=== PATIENT | female | born 1965 | race Caucasian/White ===

== ENCOUNTER → 2019-02-08 | Outpatient (CLI) | payer OTHER ==
[~2019-02-08] MED LIST: ADVAIR IH; HCTZ; LIPITOR; LORTAB 5/500 501 TAB PO; PEPCID 20MG TAB20 MG PO; SINGULAIR; SYNTHROID0.025 MG PO
== END ==
LOC: COL.RAD 10:08
DX: M46.82 Other specified inflammatory spondylopathies, cervical region (principal); M50.222 Other cervical disc displacement at C5-C6 level; M48.02 Spinal stenosis, cervical region; M89.38 Hypertrophy of bone, other site; M40.292 Other kyphosis, cervical region

== ENCOUNTER 2019-10-18 05:31 | Day surgery (SDC) | payer OTHER ==
[~2019-10-18] VITALS: Ht 165.1 cm; Wt 173.5 kg
[2019-10-18] VITALS (12 sets, daily range): BP systolic 100–139; BP diastolic 45–75; PULSE 62–92; TEMP 98–98.6
[2019-10-18] MEDS ORDERED: SPIRIVA RE2.5 MCG/Ac IH (06:01)
[2019-10-18] MEDS ORDERED: EFFEXOR 75M75 MG/TAB PO (06:01)
[2019-10-18] MEDS ORDERED: ATARAX 25MG25 MG/TAB PO (06:01)
[2019-10-18] MEDS ORDERED: ZAROXOLYN 2.52.5 MG PO (06:03)
[2019-10-18] MEDS ORDERED: LASIX 40MG TABL40 MG PO (06:03)
[2019-10-18] MEDS ORDERED: SINGULAIR 110 MG/TAB PO (06:04)
[2019-10-18] MEDS ORDERED: ALBUTEROL S0.4 MG/ML PO (06:04)
[2019-10-18] MEDS ORDERED: SYNTHROID0.137 MG PO (06:05)
[2019-10-18] MEDS ORDERED: DRISDOL50000 IU PO (06:05)
[2019-10-18] MEDS ORDERED: 00186-0370-20 IH (06:06)
[2019-10-18] MEDS ORDERED: PROAIR HFA0.09 MG/AC IH (06:06)
[2019-10-18] MEDS ORDERED: ALDACTONE 100M100 MG PO (06:07)
[2019-10-18] MEDS ORDERED: K-DUR20 MEQ PO (06:08)
--- NOTE | 2019-10-18 06:40 | NUR ---
Patient has one tooth on the left lower front that is loose pre-op.
--- NOTE | 2019-10-18 06:46 | NUR ---
Verbal order from Peace Galaviz CRNA that patient does NOT need a blood glucose prior to OR.
--- NOTE | 2019-10-18 06:59 | NUR ---
Patient responded YES to first 2 suicide screening questions. Order for behavioral health screening at discharge placed per screening tool instructions.
--- NOTE | 2019-10-18 08:08 | NUR ---
Patient belongings bags x3 taken to PACU Labeled with patient's stickers at this time.
--- NOTE | 2019-10-18 11:10 | NUR ---
Patient up from OR. Alert and oriented x 3. Assessment complete. Lap sites x4 with bandaids in place, CDI. Katiana pads in place. Post op fluids infusing. Tolerating clear liquids. Russell to dependent drainage with clear yellow urine in bag. Spouse at bedside. Post op VSS. Denies further needs at this time.
[2019-10-18] MEDS ORDERED: DILAUDID 2MG TAB2 MG PO (11:12)
--- NOTE | 2019-10-18 16:06 | NUR ---
Contacted Dr. Yu, restarted home respiratory medications. Patient tolerating fluids, IV to INT. Patient up to recliner, stand by assist.
--- NOTE | 2019-10-18 18:25 | NUR ---
Patient has done well throughout the day, up to recliner most of the afternoon. Peripad with scant drainage present. Tolerating diet without difficulties. Denies further needs at this time. Will report off to machinist 2nd shift.
--- NOTE | 2019-10-18 18:30 | NUR ---
Patient ambulated >150 feet with stand by assisst. Russell catheter discontinued per orders, pericare provided
--- NOTE | 2019-10-18 21:25 | NUR ---
patient doing well tonight. alert and oriented x4. c/o pain to her kaycee area, denies pain at incisional sites. abd laps x4 CDI with bandaids. peripad changed, scant amount of bloody drainage present. patient has not voided yet since saenz removed, will continue to monitor. WBG 222 at 1999, 4 units novolog given. INT to R wrist patent and flushes without difficulty. took scheduled medications without issue. no further needs at this time. will continue to monitor.
--- NOTE | 2019-10-19 00:31 | NUR ---
Patient voided 70 ml of clear yellow urine.
[2019-10-19 03:58] VITALS: BP 104/55; PULSE 77; TEMP 98.5
--- NOTE | 2019-10-19 08:00 | NUR ---
Assessment charted. Patient A&Ox4. VSS. IV CDI. Reporting lower abdominal pain/pressure in vaginal/kaycee area. No pain medication requested. Reporting having gas as well. Lap sites 4x abdomen, CDI. Bandaids covering. Nursing instructed to ambulate in room to help with discomfort. No further needs expressed from patient. Call light within reach
[2019-10-19 08:07] VITALS: BP 106/54; PULSE 83; TEMP 98.4
--- NOTE | 2019-10-19 10:45 | NUR ---
Discharge paperwork reviewed with patient. Patient verbalized an understanding of following doctors orders. IV removed, tip intact, coban and gauze applied. No further needs expressed from patient. Discharge paperwork and personal belongings with patient. Patient transfered by wheelchair by nursing staff to vehicle.
== END 2019-10-19 10:45 | disposition home or self-care (01) ==
LOC: SDCO 05:31 → JCC 11:25 → SDCO 10-19 10:45
DX: D25.1 Intramural leiomyoma of uterus (principal); N83.312 Acquired atrophy of left ovary; N83.311 Acquired atrophy of right ovary; N88.8 Other specified noninflammatory disorders of cervix uteri; D86.9 Sarcoidosis, unspecified; E03.9 Hypothyroidism, unspecified; E11.9 Type 2 diabetes mellitus without complications; E66.01 Morbid (severe) obesity due to excess calories; F41.9 Anxiety disorder, unspecified; J44.9 Chronic obstructive pulmonary disease, unspecified; M19.90 Unspecified osteoarthritis, unspecified site; G89.29 Other chronic pain; M54.9 Dorsalgia, unspecified; F32.9 Major depressive disorder, single episode, unspecified; K21.9 Gastro-esophageal reflux disease without esophagitis; G47.33 Obstructive sleep apnea (adult) (pediatric); Z68.44 Body mass index [BMI] 60.0-69.9, adult; Z80.1 Family history of malignant neoplasm of trachea, bronchus and lung; Z82.49 Family history of ischemic heart disease and other diseases of the circulatory system; Z80.8 Family history of malignant neoplasm of other organs or systems; Z87.891 Personal history of nicotine dependence; Z90.49 Acquired absence of other specified parts of digestive tract; Z88.6 Allergy status to analgesic agent; Z88.0 Allergy status to penicillin; Z88.8 Allergy status to other drugs, medicaments and biological substances
CPT/HCPCS: OP; A4314; J0330; J0690; J1815; J1885; J2405; J2704; J2710; J2765; J3010; J7120

== ENCOUNTER 2021-09-28 16:21 | Inpatient (IN) | payer OTHER ==
[~2021-09-28] VITALS: Ht 165.1 cm; Wt 159.0 kg
[~2021-09-28 16:21] MED LIST changes: +00186-0370-20 IH; +ALBUTEROL S0.4 MG/ML PO; +ALDACTONE 100M100 MG PO; +ATARAX 25MG25 MG/TAB PO; +DILAUDID 2MG TAB2 MG PO; +DRISDOL50000 IU PO; +EFFEXOR 75M75 MG/TAB PO; +K-DUR20 MEQ PO; +LASIX 40MG TABL40 MG PO; +PROAIR HFA0.09 MG/AC IH; +SINGULAIR 110 MG/TAB PO; +SPIRIVA RE2.5 MCG/Ac IH; +SYNTHROID0.137 MG PO; +ZAROXOLYN 2.52.5 MG PO
[2021-10-13] VITALS (11 sets, daily range): BP systolic 103–125; BP diastolic 48–84; PULSE 73–94; TEMP 97.9–98.9
[2021-10-13] MEDS ORDERED: RT ADVAIR 128 DISKUS IH (06:40)
[2021-10-13] MEDS ORDERED: PROAIR HFA0.09 MG/AC IH (06:41)
[2021-10-13] MEDS ORDERED: ALBUTEROL0.83 MG/ML IH (06:41)
[2021-10-13] MEDS ORDERED: ZYRTEC 10MG10 MG PO (06:42)
[2021-10-13] MEDS ORDERED: VITAMIN B11000 MCG/M IM (06:43)
[2021-10-13] MEDS ORDERED: ERGOCALCIFER50000 IU PO (06:45)
[2021-10-13] MEDS ORDERED: ATARAX 25MG25 MG/TAB PO (06:46)
[2021-10-13] MEDS ORDERED: SYNTHROID0.137 MG PO (06:47)
[2021-10-13] MEDS ORDERED: LIDODERM 5% PATC1 EA TP (06:49)
[2021-10-13] MEDS ORDERED: SINGULAIR 110 MG/TAB PO (06:50)
[2021-10-13] MEDS ORDERED: ZOLOFT 100MG100 MG PO (06:51)
[2021-10-13] MEDS ORDERED: SPIRIVA RESPIMAT4 GM IH (06:52)
[2021-10-13] MEDS ORDERED: DESYREL 50MG50 MG PO (06:54)
[2021-10-13 10:36] LABS: BASO % 0.4 % (0.0-2.0); EOS % 0.3 % (0.0-4.0); GRAN # 8.9 K/mm3 (1.4-6.5); GRAN % 80.5 % (42.2-75.2); HEMATOCRIT 41.3 % (37.0-47.0); HEMOGLOBIN 14.1 g/dl (12.5-16.0); LYMPH # 1.7 K/mm3 (1.2-3.4); LYMPH % 15.3 % (20.0-51.0); MEAN CELL VOLUME 82 fl (80.0-100.0); MEAN CORPUSCULAR HEMOGLOBIN 28 pg (27-31); MEAN CORPUSCULAR HGB CONC 34 g/dl (33.0-37.0); MEAN PLATELET VOLUME 11.5 fl (7.4-10.4); MONO # 0.3 K/mm3 (0.1-0.6); MONO % 2.5 % (1.7-9.3); PLATELET COUNT 289 K/mm3 (130-400); RED BLOOD COUNT 5.04 M/mm3 (4.10-5.30); REDCELL DISTRIBUTION WIDTH-CV 13.6 % (11.5-14.5)
[2021-10-13 10:48] LABS: ALBUMIN 3.8 gm/dL (3.5-5.0); BILIRUBIN,TOTAL 0.3 mg/dL (0.2-1.2); CALCIUM 9.2 mg/dL (8.4-10.2); CREATININE, serum 1.37 mg/dL (0.57-1.11); POTASSIUM 3.2 mmol/L (3.5-4.5); TOTAL PROTEIN 7.6 gm/dL (6.2-8.1)
--- NOTE | 2021-10-13 12:00 | NUR ---
Pt up recently from surgery. She is alert, does have complaints of pain, CONICAL MIXER started and pt educated on use. Pt is aware that she is to not have anything to eat or drink. Gave her some sponges to moisten her mouth. VSS. Oriented pt to room, call light within reach
--- NOTE | 2021-10-13 13:00 | NUR ---
Pt continues to do well. Heart rate regular, bowel sounds hypoactive, lungs clear. Lap sites to abd are CDI. Drain to her left side with dressing CDI. DEVIN to bulb suction. Pt rating her pain 3/10 with HIGH WIRE ARTIST, continues to report that the medication is helping. Pt was given a fan due to her feeling sweaty. Pt is refusing the SCD's due to this as well. Call light within reach, will continue to monitor
--- NOTE | 2021-10-13 14:00 | NUR ---
Pt rang call light stating that her IV was bleeding. Pt was repositioning herself and IV got pulled out. Cleaned pt up from blood. New IV started and fluids resumed. Pt is doing okay, states the SALES AND MANAGEMENT TRAINEE is helping.
--- NOTE | 2021-10-13 18:00 | NUR ---
Pt has done well throughout the rest of the afternoon. ACQUISITION CONSULTANT working well for her pain. Pt aware that staff will be to help her get to the chair this evening. Pt stated she understood. Pt denies any needs, call light within reach
--- NOTE | 2021-10-13 21:00 | NUR ---
PT. sitting up in bed at this time. Pt. is A&OX3, assessment complete. IV to rt. forearm patent. Pt. reports pain at a 4 on pain scale, pt. reports this is tolerable, and that PE ELECTRICAL ENGINEER is manageing pain well. Pt. assisted up to the chair with 2 assist. Pt. tolerated well. Abd. incisions x5 with bandaids, CDI. DEVIN drain noted with bloody drainage. Pt. denies further needs, call light within reach.
[2021-10-14] VITALS (9 sets, daily range): BP systolic 100–122; BP diastolic 51–62; PULSE 66–79; TEMP 97.8–98.8
[2021-10-14 06:33] LABS: BASO % 0.2 % (0.0-2.0); EOS % 0.1 % (0.0-4.0); GRAN # 8.6 K/mm3 (1.4-6.5); GRAN % 74.2 % (42.2-75.2); HEMATOCRIT 38.1 % (37.0-47.0); HEMOGLOBIN 12.7 g/dl (12.5-16.0); LYMPH # 1.9 K/mm3 (1.2-3.4); LYMPH % 16.3 % (20.0-51.0); MEAN CELL VOLUME 83 fl (80.0-100.0); MEAN CORPUSCULAR HEMOGLOBIN 28 pg (27-31); MEAN CORPUSCULAR HGB CONC 33 g/dl (33.0-37.0); MONO % 8.7 % (1.7-9.3); PLATELET COUNT 280 K/mm3 (130-400); RED BLOOD COUNT 4.57 M/mm3 (4.10-5.30); REDCELL DISTRIBUTION WIDTH-CV 13.7 % (11.5-14.5)
[2021-10-14 06:53] LABS: ALBUMIN 3.3 gm/dL (3.5-5.0); BILIRUBIN,TOTAL 0.3 mg/dL (0.2-1.2); CALCIUM 8.6 mg/dL (8.4-10.2); CREATININE, serum 0.96 mg/dL (0.57-1.11); TOTAL PROTEIN 6.6 gm/dL (6.2-8.1)
[2021-10-14 07:00] LABS: POTASSIUM 2.8 mmol/L (3.5-4.5)
--- NOTE | 2021-10-14 09:18 | NUR ---
MOY met with the patient to discuss discharge plan. The patient lives in [place] with her , Ivan (ph#[phone]). She reports independence with ADLs and has a CPAP and a walker and canes available, if needed. The patient's PCP is Annabelle La on the Red Team at the [facility]. She receives her medications from the [facility]. The patient does not have a DPOA-HC and she was not interested in completing one at this time. The patient plans on returning home with her upon discharge. No additional needs at this time. *Discharge plan: home with *
--- NOTE | 2021-10-14 09:39 | NUR ---
Initial visit; Patient thanked Fire Patroller for looking in on her and offering prayer and God's blessings.
--- NOTE | 2021-10-14 12:55 | NUR ---
Pt back in her room from radiology. Dr Norris in to see patient, new orders wrote. Pt does get around well in her room, reports having pain, but does ambulate well. Fluids resumed, ENVIRONMENTAL FIELD TECHNICIAN discontinued and will start oral pain medicaiton. Pt aware of diet restrictions as taught in the [facility]. Pts spouse in the room, no question, call light within reach, will continue to monitor
--- NOTE | 2021-10-14 15:03 | NUR ---
Pt doing well, tolerating clear liquid diet. Did give her 30ml cups to measure her intake. Oral pain medication is helping. Pt denies any needs. She does continue to sit up in the chair. Call light within reach
--- NOTE | 2021-10-14 16:32 | NUR ---
pt assisted back to bed at this time. She did well with stand by assist. Pt rating her pain 4/10 and reports it is tolerable. Russell catheter removed per order. Pt is tolerating the clear liquids. No needs at this time, call light within reach
--- NOTE | 2021-10-14 23:23 | NUR ---
Patient assessed around 2009. Alert and oriented, and able to make needs known. Given PRN [place] as requested for pain to abdomen. Ambulated to bathroom and able to void. 5 lab sites to abdomen, and DEVIN drain. Voices no questions, needs, or concerns at this time. In bed with call light within reach.
[2021-10-15 03:56] VITALS: BP 118/56; PULSE 76; TEMP 98.2
--- NOTE | 2021-10-15 06:13 | NUR ---
Patient received PRN [place] as requested for pain this shift. Potassium recheck was 3.1, started replacing per protocol. IV fluids continue per orders. Voices no questions, needs, or concerns at this time. In bed with call light within reach.
[2021-10-15 06:44] LABS: CALCIUM 8.5 mg/dL (8.4-10.2); CREATININE, serum 0.9 mg/dL (0.57-1.11); POTASSIUM 3.2 mmol/L (3.5-4.5)
[2021-10-15 07:23] VITALS: BP 105/51; PULSE 74; TEMP 98.6
[2021-10-15 11:32] VITALS: BP 123/67; PULSE 75; TEMP 98.3
[2021-10-15 15:37] VITALS: BP 109/60; PULSE 77; TEMP 98.1
[2021-10-15 19:39] VITALS: BP 93/54; PULSE 79; TEMP 98.7
--- NOTE | 2021-10-15 20:00 | NUR ---
Pt. sitting up in chair. Pt. is A&OX3, assessment complete. IV to lt. ac patent, IV fliuds infusing per orders. Abd. incisions well approximated. DEVIN drain noted with serosanguineous drainage noted. Pt. reports pain at a 5 on pain scale, pt. had pain medication prior to this shift. Pt. assisted to bed with stand by assist. Pt. ambulating well. Pt. repositioned for comfort. Pt. denies further needs, call light within reach.
[2021-10-16 00:22] VITALS: BP 114/53; PULSE 74; TEMP 98.4
[2021-10-16 03:51] VITALS: BP 102/46; PULSE 65; TEMP 98.4
[2021-10-16 07:16] LABS: POTASSIUM 2.9 mmol/L (3.5-4.5)
[2021-10-16 08:10] VITALS: BP 129/64; PULSE 77; TEMP 98.2
[2021-10-16 08:46] LABS: BASO % 0.3 % (0.0-2.0); EOS # 0.2 K/mm3 (0.0-0.7); EOS % 2.6 % (0.0-4.0); GRAN # 6.4 K/mm3 (1.4-6.5); GRAN % 68.4 % (42.2-75.2); HEMATOCRIT 38.6 % (37.0-47.0); HEMOGLOBIN 12.8 g/dl (12.5-16.0); LYMPH # 1.7 K/mm3 (1.2-3.4); LYMPH % 18.6 % (20.0-51.0); MEAN CELL VOLUME 84 fl (80.0-100.0); MEAN CORPUSCULAR HEMOGLOBIN 28 pg (27-31); MEAN CORPUSCULAR HGB CONC 33 g/dl (33.0-37.0); MEAN PLATELET VOLUME 12.1 fl (7.4-10.4); MONO # 0.9 K/mm3 (0.1-0.6); MONO % 9.3 % (1.7-9.3); PLATELET COUNT 272 K/mm3 (130-400); REDCELL DISTRIBUTION WIDTH-CV 13.8 % (11.5-14.5)
[2021-10-16 09:00] LABS: BILIRUBIN,TOTAL 0.6 mg/dL (0.2-1.2); CALCIUM 8.8 mg/dL (8.4-10.2); CREATININE, serum 0.86 mg/dL (0.57-1.11); TOTAL PROTEIN 6.5 gm/dL (6.2-8.1)
[2021-10-16 11:17] VITALS: BP 119/62; PULSE 76; TEMP 98.5
[2021-10-16 16:38] VITALS: BP 103/53; PULSE 77; TEMP 98.4
--- NOTE | 2021-10-16 21:45 | NUR ---
Pt. sitting up in bed at this time. Pt. is A&OX3, assessment complete. IV to lt. ac patent, IV fluids infusing per orders. DEVIN drain to LLQ, dressing with some drainage, dressing changed 2x2 gauze x4 and tegaderm applied. Drainage in DEVIN drain is serous. Abd. lap sites x5 well approximated. Pt. reports pain at a 4 on pain scale at this time. Pt. denies further needs at this time.
[2021-10-17 07:03] VITALS: BP 139/77; PULSE 68; TEMP 98
[2021-10-17] MEDS ORDERED: NORCO 325 MG-51 TAB PO (09:36)
[2021-10-17] MEDS ORDERED: ULTRAM 50MG TAB50 MG PO (09:49)
[2021-10-17] MEDS ORDERED: ZOFRAN 4MG T4 MG/TAB PO (09:49)
--- NOTE | 2021-10-17 11:25 | NUR ---
IV REMOVED, INTACT. DISCHARGE PAPERWORK WENT OVER WITH PATIENT, SIGNED, NO QUESTIONS AT THIS TIME. PATIENT WAS WHEELED OUT WITH TECH AND .
== END 2021-10-17 11:25 | disposition home or self-care (01) | DRG 621 ==
LOC: SURG 10-13 05:30 → INPTSU 10-13 05:30 → SURG 10-13 07:30
PROVIDERS: ADMIT Surgery
PROC: 8E0W4CZ Robotic Assisted Procedure of Trunk Region, Percutaneous Endoscopic Approach (ICD-10-PCS; 2021-10-13)
PROC: 0D164ZA Bypass Stomach to Jejunum, Percutaneous Endoscopic Approach (ICD-10-PCS; principal; 2021-10-13 07:30)
DX: E66.01 Morbid (severe) obesity due to excess calories (principal); Z68.43 Body mass index [BMI] 50.0-59.9, adult; E87.6 Hypokalemia; R11.0 Nausea; T40.605A Adverse effect of unspecified narcotics, initial encounter; E03.9 Hypothyroidism, unspecified; D86.9 Sarcoidosis, unspecified; E11.9 Type 2 diabetes mellitus without complications; Z79.84 Long term (current) use of oral hypoglycemic drugs
CPT/HCPCS: A4314; C9113; J0690; J1100; J1170; J1650; J1956; J2370; J2405; J2704; J3010; J3480; J7030; J7050

== ENCOUNTER → 2021-12-31 | Outpatient (CLI) | payer OTHER ==
[~2021-12-31] MED LIST changes: +ALBUTEROL0.83 MG/ML IH; +DESYREL 50MG50 MG PO; +ERGOCALCIFER50000 IU PO; +LIDODERM 5% PATC1 EA TP; +NORCO 325 MG-51 TAB PO; +RT ADVAIR 128 DISKUS IH; +SPIRIVA RESPIMAT4 GM IH; +ULTRAM 50MG TAB50 MG PO; +VITAMIN B11000 MCG/M IM; +ZOFRAN 4MG T4 MG/TAB PO; +ZOLOFT 100MG100 MG PO; +ZYRTEC 10MG10 MG PO
[2021-12-31 12:09] LABS: HEMATOCRIT 41.3 % (37.0-47.0); HEMOGLOBIN 13.5 g/dl (12.5-16.0); MEAN CELL VOLUME 80 fl (80.0-100.0); MEAN CORPUSCULAR HEMOGLOBIN 26 pg (27-31); MEAN CORPUSCULAR HGB CONC 33 g/dl (33.0-37.0); MEAN PLATELET VOLUME 12.4 fl (7.4-10.4); PLATELET COUNT 229 K/mm3 (130-400); RED BLOOD COUNT 5.18 M/mm3 (4.10-5.30); REDCELL DISTRIBUTION WIDTH-CV 14.9 % (11.5-14.5)
[2021-12-31 12:23] LABS: ALBUMIN 3.9 gm/dL (3.5-5.0); BILIRUBIN,TOTAL 0.4 mg/dL (0.2-1.2); CALCIUM 9.3 mg/dL (8.4-10.2); CREATININE, serum 0.9 mg/dL (0.57-1.11)
== END ==
LOC: COL.LAB 11:06
PROVIDERS: Surgery
DX: Z01.89 Encounter for other specified special examinations (principal)

== ENCOUNTER → 2022-03-30 | Outpatient (CLI) | payer OTHER ==
[2022-03-30 13:07] LABS: HEMATOCRIT 40.9 % (37.0-47.0); HEMOGLOBIN 13.8 g/dl (12.5-16.0); MEAN CELL VOLUME 81 fl (80.0-100.0); MEAN CORPUSCULAR HEMOGLOBIN 27 pg (27-31); MEAN CORPUSCULAR HGB CONC 34 g/dl (33.0-37.0); MEAN PLATELET VOLUME 12.1 fl (7.4-10.4); PLATELET COUNT 236 K/mm3 (130-400); RED BLOOD COUNT 5.07 M/mm3 (4.10-5.30); REDCELL DISTRIBUTION WIDTH-CV 15.6 % (11.5-14.5)
[2022-03-30 13:24] LABS: BILIRUBIN,TOTAL 0.4 mg/dL (0.2-1.2); CALCIUM 9.9 mg/dL (8.4-10.2); CREATININE, serum 0.85 mg/dL (0.57-1.11); POTASSIUM 3.8 mmol/L (3.5-4.5); TOTAL PROTEIN 7.5 gm/dL (6.2-8.1)
== END ==
LOC: COL.LAB 12:24
PROVIDERS: Surgery
DX: Z01.89 Encounter for other specified special examinations (principal)

== ENCOUNTER → 2022-10-11 | Outpatient (CLI) | payer OTHER ==
[2022-10-11 14:16] LABS: HEMATOCRIT 39.5 % (37.0-47.0); HEMOGLOBIN 13.4 g/dl (12.5-16.0); MEAN CELL VOLUME 84 fl (80.0-100.0); MEAN CORPUSCULAR HEMOGLOBIN 28 pg (27-31); MEAN CORPUSCULAR HGB CONC 34 g/dl (33.0-37.0); MEAN PLATELET VOLUME 11.7 fl (7.4-10.4); PLATELET COUNT 270 K/mm3 (130-400); RED BLOOD COUNT 4.73 M/mm3 (4.10-5.30); REDCELL DISTRIBUTION WIDTH-CV 12.9 % (11.5-14.5)
[2022-10-11 14:35] LABS: ALBUMIN 3.8 gm/dL (3.5-5.0); BILIRUBIN,TOTAL 0.4 mg/dL (0.2-1.2); CALCIUM 9.5 mg/dL (8.4-10.2); CREATININE, serum 0.76 mg/dL (0.57-1.11); TOTAL PROTEIN 7.3 gm/dL (6.2-8.1)
== END ==
LOC: COL.LAB 13:17
PROVIDERS: Surgery
DX: Z01.89 Encounter for other specified special examinations (principal)

== ENCOUNTER → 2024-04-22 | Outpatient (CLI) | payer OTHER | LOC: COL.LAB 10:46 | PROVIDERS: Surgery | DX: Z98.84 Bariatric surgery status (principal) ==